=== PATIENT | female | born 1960 | race Two or more races ===

== ENCOUNTER 2022-04-18 19:37 | Emergency (ER) | payer MEDICAID ==
[2022-04-19 01:06] VITALS: BP 141/59
== END 2022-04-19 01:10 | disposition home or self-care (01) ==
LOC: ER 19:37
DX: M77.31 Calcaneal spur, right foot (principal); M54.9 Dorsalgia, unspecified; I10 Essential (primary) hypertension; E03.9 Hypothyroidism, unspecified; J45.909 Unspecified asthma, uncomplicated
CPT/HCPCS: 73630

== ENCOUNTER 2022-10-13 16:11 | Emergency (ER) | payer MEDICAID ==
[~2022-10-13] VITALS: Ht 160 cm; Wt 76.0 kg
[2022-10-13 16:48] VITALS: BP 147/84
[2022-10-13] MEDS ORDERED: KETOROLAC TROMETH 60MG/2ML VIAL IM ONE (17:30)
== END 2022-10-13 17:37 | disposition home or self-care (01) ==
LOC: ER 16:11
DX: M54.40 Lumbago with sciatica, unspecified side (principal); J45.909 Unspecified asthma, uncomplicated; I10 Essential (primary) hypertension; Z98.890 Other specified postprocedural states
CPT/HCPCS: 96372; 99283; J1885

== ENCOUNTER 2023-08-21 09:13 | Emergency (ER) | payer MEDICARE, MEDICAID ==
[~2023-08-21] VITALS: Ht 162.6 cm; Wt 86.0 kg
[2023-08-21 10:31] LABS: Hematocrit 39.1 % (36.0-46.0); Hemoglobin 12.9 g/dL (12.2-16.2); Mean Corpuscular Hemoglobin 28.9 pg (28.0-32.0); Mean Corpuscular Hgb Conc. 32.9 g/dL (32.0-36.0); Mean Corpuscular Volume 87.9 fL (80.0-100.0); Red Blood Cells 4.44 10^6/uL (4.0-5.20); Red Cell Distribution Width 15.4 % (11.8-14.3); White Blood Cell 5.2 10^3/uL (4.4-10.8)
[2023-08-21 10:35] LABS: Band Neutrophils % (manual) 0; Basophils % (manual) 0 (0.0-2.0); Blast Cells 0; Metamyelocytes % 0; Myelocytes % 0; Promyelocytes % 0; Reactive Lymphocytes 0
[2023-08-21 10:38] LABS: Alanine Aminotransferase 70 U/L (7-40); Albumin 4.8 g/dL (3.2-4.8); Alkaline Phosphatase 95 U/L (46-116); Anion Gap 8 (5-15); Aspartate Aminotransferase 54 U/L (13-40); BUN/Creatinine Ratio 19.8 (10.0-20.0); Bilirubin, Total 0.4 mg/dL (0.2-1.0); Blood Urea Nitrogen 18 mg/dL (9-23); Calcium 9.6 mg/dL (8.5-10.1); Carbon Dioxide 29 mmol/L (20-30); Chloride 104 mmol/L (98-107); Glucose 110 mg/dL (74-106); Sodium 141 mmol/L (136-145); Total Protein 7.5 g/dL (5.7-8.2)
[2023-08-21 13:01] LABS: Eosinophils % (manual) 2 (0-7); Lymphocytes % (manual) 24 (10.0-50.0); Monocytes % (manual) 12 (0-12); Platelet Estimate Adequate
[2023-08-21 14:56] VITALS: PULSE 78
[2023-08-21 14:58] VITALS: BP 107/60; PULSE 81; RESP 15; TEMP 97.7; O2SAT 99
== END 2023-08-21 15:00 | disposition home or self-care (01) ==
LOC: ER 09:13
DX: I16.0 Hypertensive urgency (principal); E11.9 Type 2 diabetes mellitus without complications; E78.5 Hyperlipidemia, unspecified; E03.9 Hypothyroidism, unspecified; J45.909 Unspecified asthma, uncomplicated
CPT/HCPCS: 36415; 70450; 80053; 84484; 85007; 85027; 93005

== ENCOUNTER 2023-09-03 15:36 | Emergency (ER) | payer OTHER, MEDICAID ==
[~2023-09-03] VITALS: Ht 149.9 cm; Wt 87.7 kg
[2023-09-03 15:46] VITALS: BP 146/62; PULSE 95; RESP 18; O2SAT 96
[2023-09-03] MEDS ORDERED: TETRACAINE HCL 0.5% OPTH(EYE) SOLN 4ML RIGHTEYE ONE (17:00)
[2023-09-03] MEDS ORDERED: FLUORESCEIN SOD OPTH TEST STRIP OP ONE (17:00)
[2023-09-03] MEDS ORDERED: CIPR0.3S67 OP (17:15)
== END 2023-09-03 17:35 | disposition home or self-care (01) ==
LOC: ER 15:36
DX: S05.01XA Injury of conjunctiva and corneal abrasion without foreign body, right eye, initial encounter (principal); J45.909 Unspecified asthma, uncomplicated; I10 Essential (primary) hypertension; E11.9 Type 2 diabetes mellitus without complications; E78.5 Hyperlipidemia, unspecified; E03.9 Hypothyroidism, unspecified; Z79.2 Long term (current) use of antibiotics; X58.XXXA Exposure to other specified factors, initial encounter; Y93.89 Activity, other specified; Y92.89 Other specified places as the place of occurrence of the external cause; Y99.8 Other external cause status

== ENCOUNTER 2024-02-25 10:34 | Inpatient (IN) | payer OTHER, MEDICAID ==
[~2024-02-25] VITALS: Ht 160 cm; Wt 91.2 kg
[~2024-02-25 10:34] MED LIST: CIPR0.3S67 OP
[2024-02-25 12:01] VITALS: PULSE 80; RESP 16; O2SAT 95
[2024-02-25 12:04] LABS: Basophils # (auto) 0.1 10 ^3/uL (0-0.2); Basophils % (auto) 0.9 % (0.0-2.0); Eosinophils # (auto) 0.4 10 ^3/uL (0-0.8); Eosinophils % (auto) 5.2 % (0.0-7.0); Hemoglobin 11.9 g/dL (12.2-16.2); Lymphocytes # (auto) 1.9 10 ^3/uL (0.4-5.4); Mean Corpuscular Hemoglobin 29.8 pg (28.0-32.0); Mean Corpuscular Hgb Conc. 33.1 g/dL (32.0-36.0); Mean Corpuscular Volume 90.1 fL (80.0-100.0); Monocytes # (auto) 0.6 10 ^3/uL (0-1.3); Monocytes % (auto) 9.3 % (0.0-12.0); Neutrophils # (auto) 3.9 10 ^3/uL (1.6-8.6); Neutrophils % (auto) 56.6 % (37.0-80.0); Nucleated Red Blood Cells % 0.1 %; Red Cell Distribution Width 14.2 % (11.8-14.3); White Blood Cell 6.8 10^3/uL (4.4-10.8)
[2024-02-25 12:08] LABS: Urine Bacteria FEW /hpf (None Seen); Urine Blood TRACE /uL (Negative); Urine Clarity Turbid (Clear); Urine Color Light-Yellow (Yellow); Urine Hyaline Cast FEW /lpf (0 - 2); Urine Protein, UAD Negative (Negative); Urine Specific Gravity 1.016 (1.001-1.035); Urine Urobilinogen Normal (Negative); Urine WBC 1 /hpf (0 - 5)
[2024-02-25 12:22] LABS: Alanine Aminotransferase 32 U/L (7-40); Albumin 4.5 g/dL (3.2-4.8); Alkaline Phosphatase 99 U/L (46-116); Anion Gap 8 (5-15); Aspartate Aminotransferase 26 U/L (13-40); BUN/Creatinine Ratio 24.7 (10.0-20.0); Bilirubin, Total 0.4 mg/dL (0.2-1.0); Blood Urea Nitrogen 18 mg/dL (9-23); Calcium 9.7 mg/dL (8.7-10.4); Carbon Dioxide 28 mmol/L (20-30); Chloride 105 mmol/L (98-107); Glucose 112 mg/dL (74-106); Potassium 3.8 mmol/L (3.5-5.1); Sodium 141 mmol/L (136-145); Total Protein 7.1 g/dL (5.7-8.2)
[2024-02-25] MEDS: MECLIZINE HCL 25 MG TAB PO ONE (14:00)
[2024-02-25] MEDS: HYDROcodone-ACET 5/325MG TAB PO ONE (14:56)
[2024-02-25] MEDS: DexAMETHasone SOD PHOS 10MG/1ML VIAL INJ IV ONE (15:08)
[2024-02-25] MEDS: SODIUM CHLORIDE 0.9% 1,000 ML IV ONE (16:58)
[2024-02-25] MEDS: diazePAM 2 MG TAB PO ONE (16:58)
[2024-02-25] MEDS: cefTRIAXone 1GM/50ML D5W 50 ML IV ONE (17:03)
[2024-02-25 20:00] VITALS: PULSE 81; RESP 17; O2SAT 96
[2024-02-25] MEDS ORDERED: DEXTROSE (50%) 50ML SYRG IV PRN (22:30)
[2024-02-25] MEDS ORDERED: DOCUSATE SOD 100 MG CAP PO PRN (22:30)
[2024-02-25] MEDS ORDERED: ONDANSETRON HCL 4 MG/2 ML VIAL IV PRN (22:30)
[2024-02-25] MEDS ORDERED: NITROGLYCERIN 0.4 MG SL TAB SL PRN (23:15)
[2024-02-25] MEDS ORDERED: MORPHINE SULFATE INJ 2 MG/ml SYRG IV PRN (23:15)
[2024-02-26] VITALS (8 sets, daily range): BP systolic 120–148; BP diastolic 60–81; PULSE 69–82; RESP 16–20; TEMP 97.7–98.6; O2SAT 95–99
[2024-02-26] MEDS: LEVOTHYROXINE SODIUM 88 MCG TAB PO SCH (05:57)
[2024-02-26] MEDS: SODIUM CHLOR 0.9% PF (SALINE LOCK) 10ML VIAL/SYR IV SCH (06:05)
[2024-02-26] MEDS: ACCU-CHEK COMFORT CURVE STRIP VI SCH (06:09)
[2024-02-26] MEDS: InsuLIN REG 1unit/0.01ml Soln (100units/ml) SC SCH (06:09)
[2024-02-26 07:01] LABS: Alanine Aminotransferase 34 U/L (7-40); Albumin 4.6 g/dL (3.2-4.8); Alkaline Phosphatase 96 U/L (46-116); Anion Gap 6 (5-15); Aspartate Aminotransferase 28 U/L (13-40); BUN/Creatinine Ratio 16.7 (10.0-20.0); Bilirubin, Total 0.3 mg/dL (0.2-1.0); Blood Urea Nitrogen 12 mg/dL (9-23); Calcium 9.7 mg/dL (8.5-10.1); Carbon Dioxide 25 mmol/L (20-30); Chloride 108 mmol/L (98-107); Glucose 130 mg/dL (74-106); Potassium 4.1 mmol/L (3.5-5.1); Sodium 139 mmol/L (136-145); Total Protein 7.5 g/dL (5.7-8.2)
[2024-02-26 07:13] LABS: Basophils # (auto) 0 10 ^3/uL (0-0.2); Basophils % (auto) 0.4 % (0.0-2.0); Eosinophils # (auto) 0 10 ^3/uL (0-0.8); Eosinophils % (auto) 0.1 % (0.0-7.0); Hematocrit 36.9 % (36.0-46.0); Hemoglobin 12.3 g/dL (12.2-16.2); Lymphocytes # (auto) 1.3 10 ^3/uL (0.4-5.4); Lymphocytes % (auto) 12.3 % (10.0-50.0); Mean Corpuscular Hemoglobin 29.8 pg (28.0-32.0); Mean Corpuscular Hgb Conc. 33.4 g/dL (32.0-36.0); Mean Corpuscular Volume 89.1 fL (80.0-100.0); Monocytes # (auto) 0.4 10 ^3/uL (0-1.3); Monocytes % (auto) 3.8 % (0.0-12.0); Neutrophils # (auto) 9.1 10 ^3/uL (1.6-8.6); Neutrophils % (auto) 83.4 % (37.0-80.0); Nucleated Red Blood Cells % 0.1 %; Red Blood Cells 4.14 10^6/uL (4.0-5.20); Red Cell Distribution Width 14.1 % (11.8-14.3)
[2024-02-26] MEDS: MECLIZINE HCL 25 MG TAB PO PRN (11:43)
[2024-02-26] MEDS: HYDROcodone-ACET 5/325MG TAB PO PRN (11:44)
[2024-02-26] MEDS: cefTRIAXone 1GM/50ML D5W 50 ML IV SCH (17:00)
[2024-02-26] MEDS ORDERED: IBUP-1456 PO (19:23)
[2024-02-26] MEDS ORDERED: HYDR12.59 PO (19:23)
[2024-02-26] MEDS ORDERED: LOSA-535 PO (19:23)
[2024-02-26] MEDS ORDERED: PAR20T GT (19:23)
[2024-02-26] MEDS ORDERED: METF-370 PO (19:23)
[2024-02-26] MEDS ORDERED: LEVO88TA4 PO (19:23)
[2024-02-26] MEDS ORDERED: PERCOT PO (19:23)
[2024-02-26] MEDS ORDERED: ATOR-507 PO (19:23)
[2024-02-26] MEDS ORDERED: LORazepam 2MG/ML-1ML VIAL IV PRN (20:45)
[2024-02-26] MEDS: ATORVASTATIN 20 MG TAB PO SCH (21:06)
[2024-02-27] VITALS (7 sets, daily range): BP systolic 127–152; BP diastolic 59–82; PULSE 66–74; RESP 16–19; TEMP 96.5–98; O2SAT 94–98
[2024-02-27 03:24] LABS: Amphetamine Screen, Urine Neg (NEGATIVE); Benzodiazephine Screen, Urine Neg (NEGATIVE)
[2024-02-27 03:25] LABS: Barbiturate Scree,Urine Neg (NEGATIVE); Cannabinoid Screen, Urine Neg (NEGATIVE); Cocaine Screen, Urine Neg (NEGATIVE); Opiate Scree,Urine Neg (NEGATIVE); Phencyclidine Screen, Urine Neg (NEGATIVE)
[2024-02-27] MEDS: PARoxetine 20 MG TAB PO SCH (10:42)
[2024-02-27] MEDS: ACETAMINOPHEN 325 MG TAB PO PRN (18:09)
[2024-02-28] VITALS (9 sets, daily range): BP systolic 0–164; BP diastolic 52–72; PULSE 20–78; RESP 17–18; TEMP 97.3–98.7; O2SAT 93–100
[2024-02-29] VITALS (7 sets, daily range): BP systolic 126–150; BP diastolic 61–89; PULSE 65–77; RESP 17–18; TEMP 97.8–98.5; O2SAT 95–97
[2024-02-29] MEDS: PARoxetine 20 MG TAB PO SCH (09:30)
[2024-02-29] MEDS: traZODone HCL 50 MG TAB PO SCH (22:02)
[2024-03-01 01:00] VITALS: BP 136/68; PULSE 82; RESP 18; TEMP 97.9; O2SAT 92
[2024-03-01 05:00] VITALS: BP 123/74; PULSE 74; RESP 21; TEMP 97.9; O2SAT 92
[2024-03-01 07:45] VITALS: PULSE 72
[2024-03-01 09:00] VITALS: BP 121/73; PULSE 62; RESP 14; TEMP 98.3; O2SAT 98
[2024-03-01] MEDS ORDERED: PAR20T PO (11:17)
[2024-03-01] MEDS ORDERED: TRAZ-228 PO (11:17)
[2024-03-01] MEDS ORDERED: MECL25CH85 PO (11:17)
[2024-03-01 12:26] VITALS: BP 121/73; PULSE 62; RESP 14; TEMP 98.3; O2SAT 98
== END 2024-03-01 13:00 | disposition home or self-care (01) | DRG 312 ==
LOC: ER 10:34 → TELE 23:02 → TELE-WESTW 23:02
PROVIDERS: ADMIT Nurse Practitioner Family; ATTEND Family Medicine
DX: R55 Syncope and collapse (principal); N39.0 Urinary tract infection, site not specified; F32.9 Major depressive disorder, single episode, unspecified; G89.29 Other chronic pain; S33.5XXA Sprain of ligaments of lumbar spine, initial encounter; E11.9 Type 2 diabetes mellitus without complications; E78.00 Pure hypercholesterolemia, unspecified; F41.9 Anxiety disorder, unspecified; E03.9 Hypothyroidism, unspecified; I10 Essential (primary) hypertension; F17.200 Nicotine dependence, unspecified, uncomplicated; H53.2 Diplopia; E66.9 Obesity, unspecified; Z79.4 Long term (current) use of insulin; Z80.0 Family history of malignant neoplasm of digestive organs; Z68.35 Body mass index [BMI] 35.0-35.9, adult; Z79.84 Long term (current) use of oral hypoglycemic drugs; Z81.8 Family history of other mental and behavioral disorders; Z82.49 Family history of ischemic heart disease and other diseases of the circulatory system; Z83.3 Family history of diabetes mellitus; W18.39XA Other fall on same level, initial encounter; Y93.89 Activity, other specified; Y92.89 Other specified places as the place of occurrence of the external cause; Y99.8 Other external cause status
CPT/HCPCS: 36415; 70450; 70551; 74176; 80053; 80307; 81001; 82962; 84443; 84484; 85025; 93005; 93306; 93886; 95819; 96361; 96365; 96375; G0378; J1100; J1815

== ENCOUNTER 2024-07-12 11:10 | Emergency (ER) | payer OTHER, MEDICAID ==
[~2024-07-12] VITALS: Ht 167.6 cm; Wt 85.7 kg
[~2024-07-12 11:10] MED LIST changes: +ATOR-507 PO; +HYDR12.59 PO; +IBUP-1456 PO; +LEVO88TA4 PO; +LOSA-535 PO; +MECL25CH85 PO; +METF-370 PO; +PAR20T GT; +PAR20T PO; +PERCOT PO; +TRAZ-228 PO
[2024-07-12 12:12] VITALS: BP 138/80; PULSE 75; RESP 18; TEMP 97.6; O2SAT 97
[2024-07-12] MEDS ORDERED: IBUP-1454 PO (12:46)
[2024-07-12] MEDS: TRIAMCINOLONE 40MG/ML 1ML VIAL IX ONE (12:46)
[2024-07-12] MEDS: LIDOCAINE 1% HCL (LOCAL ANESTH.) INJ 20ML MDV IJ ONE (12:46)
== END 2024-07-12 12:59 | disposition home or self-care (01) ==
LOC: ER 11:10
DX: M65.4 Radial styloid tenosynovitis [de Quervain] (principal); I10 Essential (primary) hypertension; E11.9 Type 2 diabetes mellitus without complications; E78.00 Pure hypercholesterolemia, unspecified; E03.9 Hypothyroidism, unspecified; J45.909 Unspecified asthma, uncomplicated; Z79.84 Long term (current) use of oral hypoglycemic drugs; Z79.899 Other long term (current) drug therapy; Z98.890 Other specified postprocedural states
CPT/HCPCS: 20550; 73110; 99284; J2003; J3301

== ENCOUNTER 2025-01-16 14:16 | Inpatient (IN) | payer OTHER, MEDICAID ==
[~2025-01-16] VITALS: Ht 162.6 cm; Wt 86.5 kg
[~2025-01-16 14:16] MED LIST changes: +ALEN35TA18 PO; +HYDR25TA5 PO; +IBUP-1454 PO; +QUET1TAB11 PO
--- NOTE | 2025-01-16 14:31 | ECG ---
[facility] Test Date: 2025-01-16 Test Time: 14:22:40 Pat Name: ARIELA COLEY Department: ER Room: 0236 Gender: F Pharmacy Benefit Manager: GP : [id number] Requested By: ALONZO ZAMARRIPA Order Number: [id number] Reading MD: Thierry Perez Measurements Intervals [place] Rate: 87 P: 55 DC: 150 QRS: 49 QRSD: 100 T: 55 QT: 360 QTc: 433 Interpretive Statements Sinus rhythm Electronically Signed On 01-18-2025 21:01:46 PDT by Thierry Perez Please click the below link to view image of tracing.
--- NOTE | 2025-01-16 14:33 | ED.PDOC ---
History of Present Illness HPI Comments 64-year-old female who comes in with chief complaint of some shortness of breaths as well as some chest pain. The patient states that the symptoms started approximately two weeks ago and then she developed some substernal chest pain with the shortness for breath. There is no radiation of the pain. The patient has had a nonproductive cough but denies any fever. The patient states that the pain is a 6/10 at this time. There has been no trauma. The patient denies any diarrhea Time Seen by MD: 14:22 Primary Care Provider: CARMELLA Reviewed Notes: Nurses Notes, Medications, Allergies (No allergies to medications) Allergies: Coded Allergies: NO KNOWN ALLERGIES (Unverified , 04/18/22) Home Meds Active Scripts Ibuprofen (Ibuprofen) 600 Mg Tab, 1 TAB PO TID for 10 Days, #30 TAB 0 Refills Prov:RD REYNOLDS STUMM[employer] SELECTOR 07/12/24 Meclizine HCl (Antivert) 25 Mg Chw, 25 MG PO TID PRN, #30 TAB.CHEW Prov:BEREKET LUCAS MD 03/01/24 Trazodone Hcl (Trazodone Hcl) 100 Mg Tab, 1 TAB PO QPM, #30 TAB 1 Refill Prov:BEREKET LUCAS MD 03/01/24 Paroxetine (PAXIL TABLET) 20 Mg Tb, 1 TAB PO DAILY, #90 TAB 3 Refills Prov:BEREKET LUCAS MD 03/01/24 Ciprofloxacin HCl (Ophth) (Ciprofloxacin Hydrochlori) 0.3 % Gerda, 2 DROP OP QID, #5 ML Prov:KIMBERLY MCKEON 09/03/23 Reported Medications Oxycodone W/ Acetaminophen (Percocet 5/325MG) 1 Tab Tb, 2 TAB PO DAILY, #120 TAB 02/26/24 Paroxetine (PAXIL TABLET) 20 Mg Tb, 10 MG GT DAILY, TAB 02/26/24 Levothyroxine Sodium (Levothyroxine Sodium) 88 Mcg Tab, 88 MCG PO QAM for 30 Days, MCG 02/26/24 Metformin Hydrochloride (Metformin Hcl) 500 Mg Tab, 500 MG PO DAILY for 30 Days, MG 02/26/24 Losartan Potassium (Losartan Potassium) 100 Mg Tab, 100 MG PO DAILY for 30 Days, MG 02/26/24 Atorvastatin Calcium (Lipitor) 40 Mg Tab, 1 TAB PO QPM, #90 TAB 3 Refills 02/26/24 Hydrochlorothiazide (Hydrochlorothiazide) 12.5 Mg Cap, 12.5 MG PO DAILY for 30 Days, MG 02/26/24 Ibuprofen (Ibuprofen) 800 Mg Tab, 800 MG PO, MG 02/26/24 Information Source: Patient Mode of Arrival: Ambulatory Severity: Moderate Timing: Weeks Duration: Since onset Prehospital treatment: None Location: Substernal chest pain Associated signs and symptoms Associated cough with shortness of breath Past Medical History PAST MEDICAL HISTORY: Asthma, DM, High Lipids, HTN, Thyroid Surgical History: Hernia Repair CRISIS SPECIALIST History: Denies all CRISIS SPECIALIST Hx Family History Family History: Family hx of DM, Family hx of HTN Social History Smoker: Non-Smoker Alcohol: Denies ETOH Use Drugs: Denies Drug Use Lives In: Home Constitutional: denies: chills, diaphoresis, fatigue, fever, malaise, sweats, weakness, others EENTM: denies: blurred vision, double vision, ear bleeding, ear discharge, ear drainage, ear pain, ear ringing, eye pain, eye redness, hearing loss, mouth pain, mouth swelling, nasal discharge, nose bleeding, nose congestion, nose pain, photophobia, tearing, throat pain, throat swelling, voice changes, others Respiratory: reports: cough, shortness of breath; denies: hemoptysis, orthopnea, SOB at rest, SOB with excertion, stridor, wheezing, others Cardiovascular: reports: chest pain; denies: dizzy spells, diaphoresis, Dyspnea on exertion, edema, irregular heart beat, left arm pain, lightheadedness, palpitations, PND, syncope, others Gastrointestinal: denies: abdomen distended, abdominal pain, blood streaked bowels, constipated, diarrhea, dysphagia, difficulty swallowing, hematemesis, melena, nausea, poor appetite, poor fluid intake, rectal bleeding, rectal pain, vomiting, others Genitourinary: denies: abnormal vagina bleeding, burning, dyspareunia, dysuria, flank pain, frequency, hematuria, incontinence, pain, , vagina discharge, urgency, others Neurological: denies: dizziness, fainting, headache, left sided numbness, left sided weakness, numbness, paresthesia, pre-existing deficit, right sided numbness, right sided weakness, seizure, speech problems, tingling, tremors, weakness, others Musculoskeletal: denies: back pain, gout, joint pain, joint swelling, muscle pain, muscle stiffness, neck pain, others Integumetry: denies: bruises, change in color, change in hair/nails, dryness, laceration, lesions, lumps, rash, wounds, others Allergic/Immunocompromised: denies: Difficulty Healing, Frequent Infections, Hives, Itching, others Hematologic/Lymphatic: denies: anemia, blood clots, easy bleeding, easy bruising, swollen glands, others Endocrine: denies: excessive hunger, excessive sweating, excessive thirst, excessive urination, flushing, intolerance to cold, intolerance to heat, unexplained weight gain, unexplained weight loss, others Psychiatric: denies: anxiety, bipolar disorder, depression, hopeless, panic disorder, schizophrenia, sleepless, suicidal, others Physical Exam General Appearance: Moderate Distress, Obese HEENT: Normal ENT Inspection, Pharynx Normal, TMs Normal Neck: Full Range of Motion, Non-Tender, Normal, Normal Inspection Respiratory: Chest Non-Tender, Lungs Clear, No Accessory Muscle Use, No Respiratory Distress, Normal Breath Sounds Cardiovascular: No Edema, No JVD, No Murmur, No Gallop, Normal Peripheral Pulses, Regular Rate/Rhythm Breast Exam: Deferred Gastrointestinal: No Organomegaly, Non Tender, No Pulsatile Mass, Normal Bowel Sounds, Soft Genitalia: Deferred Pelvic: Deferred Rectal: Deferred Extremities: No calf tenderness, Normal capillary refill, Normal inspection, Normal range of motion, Non-tender, No pedal edema Musculoskeletal : Apperance: Normal Neurologic: Alert, director operating room II-XII nml as Tested, No Motor Deficits, Normal Affect, Normal Mood, No Sensory Deficits Cerebellar Function: Normal Reflexes: Normal Skin: Dry, Normal Color, Warm Lymphatic: No Adenopathy Was a procedure done? Was a procedure done?: No EKG EKG : Pulse Rate (adult): 87 Jackson: Normal Cardiac Rhythm: NSR Block: None ST: Nonsp Differential Dx Considerations may include: ACS, UT, generalized weakness X-Ray, Labs, Meds, VS Vital Signs Date Time Temp Pulse Resp B/P (MAP) Pulse Ox O2 Delivery O2 Flow Rate FiO2 01/16/25 14:38 87 01/16/25 14:22 87 01/16/25 14:21 97.2 97 22 124/75 (91) 97 97.2 Lab Test 01/16/25 15:42 01/16/25 14:31 Range/Units Troponin I High Sensitivity < 3 L < 3 L </=34 ng/L White Blood Count 8.1 4.4-10.8 10^3/uL Red Blood Count 4.12 4.0-5.20 10^6/uL Hemoglobin 12.6 12.2-16.2 g/dL Hematocrit 37.4 36.0-46.0 % Mean Corpuscular Volume 90.8 80.0-100.0 fL Mean Corpuscular Hemoglobin 30.7 28.0-32.0 pg Mean Corpuscular Hemoglobin Concent 33.8 32.0-36.0 g/dL Red Cell Distribution Width 14.1 11.8-14.3 % Platelet Count 233 140-450 10^3/uL Mean Platelet Volume 8.2 6.9-10.8 fL Neutrophils (%) (Auto) 57.4 37.0-80.0 % Lymphocytes (%) (Auto) 27.6 10.0-50.0 % Monocytes (%) (Auto) 8.8 0.0-12.0 % Eosinophils (%) (Auto) 5.3 0.0-7.0 % Basophils (%) (Auto) 0.9 0.0-2.0 % Neutrophils # (Auto) 4.7 1.6-8.6 10 ^3/uL Lymphocytes # (Auto) 2.2 0.4-5.4 10 ^3/uL Monocytes # (Auto) 0.7 0-1.3 10 ^3/uL Eosinophils # (Auto) 0.4 0-0.8 10 ^3/uL Basophils # (Auto) 0.1 0-0.2 10 ^3/uL Nucleated Red Blood Cells 0.0 % D-Dimer, Quantitative 0.45 0.0-0.49 mg/L FEU Sodium Level 141 136-145 mmol/L Potassium Level 3.3 L 3.5-5.1 mmol/L Chloride Level 103 98-107 mmol/L Carbon Dioxide Level 29 20-31 mmol/L Anion Gap 9 5-15 Blood Urea Nitrogen 19 9-23 mg/dL Creatinine 0.79 0.550-1.02 mg/dL Glomerular Filtration Rate Calc 82 >90 mL/min BUN/Creatinine Ratio 24.1 H 10.0-20.0 Serum Glucose 140 H 74-106 mg/dL Calcium Level 10.2 8.7-10.4 mg/dL B-Type Natriuretic Peptide 9.30 0-100 pg/mL IV Hep-Lock was established. The patient's CBC is within normal limits The chemistry panel is within normal limits except for hypokalemia at 3.3 The patient was being admitted to the hospitalist The chest x-ray shows: No sign of any abnormalities The patient was being admitted at this time A cardiology consult will be obtained. Images Reviewed?: Images reviewed and evaluated by me Time of 1ST Reevaluation: 14:38 Reevaluation 1ST: Unchanged Patient Education/Counseling: Diagnosis, Treatment, Prognosis Family Education/Counseling: No Family Present Departure 1 Departure Time of Disposition: 17:36 Impression: Primary Impression: Acute myocardial ischemia Disposition: 09 ADMITTED INPATIENT Admit to: [facility] [place] Condition: Fair Critical Care Note Critical Care Time?: Yes (45 min-critical care time only) Stability Stability form required: Yes Unstable for transfer: Telemetry monitoring (Telemetry monitoring required), ED Physician Assesment (Clinical assesment) Heart Score Heart Score: Heart Score Response (Comments) Value History Moderate Suspicious 1 EKG Repolarization Disturb 1 Age >65 2 Risk Factors 1 or 2 risk factors 1 Troponin Normal limit 0 Total 5 ALONZO ZAMARRIPA MD Jan 16, 2025 14:33
[2025-01-16 14:45] LABS: Basophils # (auto) 0.1 10 ^3/uL (0-0.2); Basophils % (auto) 0.9 % (0.0-2.0); Eosinophils # (auto) 0.4 10 ^3/uL (0-0.8); Eosinophils % (auto) 5.3 % (0.0-7.0); Hematocrit 37.4 % (36.0-46.0); Hemoglobin 12.6 g/dL (12.2-16.2); Lymphocytes # (auto) 2.2 10 ^3/uL (0.4-5.4); Lymphocytes % (auto) 27.6 % (10.0-50.0); Mean Corpuscular Hemoglobin 30.7 pg (28.0-32.0); Mean Corpuscular Hgb Conc. 33.8 g/dL (32.0-36.0); Mean Corpuscular Volume 90.8 fL (80.0-100.0); Monocytes # (auto) 0.7 10 ^3/uL (0-1.3); Monocytes % (auto) 8.8 % (0.0-12.0); Neutrophils # (auto) 4.7 10 ^3/uL (1.6-8.6); Neutrophils % (auto) 57.4 % (37.0-80.0); Platelet Count (auto) 233 10^3/uL (140-450); Red Blood Cells 4.12 10^6/uL (4.0-5.20); Red Cell Distribution Width 14.1 % (11.8-14.3); White Blood Cell 8.1 10^3/uL (4.4-10.8)
[2025-01-16 14:56] LABS: Chloride 103 mmol/L (98-107); Sodium 141 mmol/L (136-145)
[2025-01-16 14:57] LABS: Calcium 10.2 mg/dL (8.7-10.4)
[2025-01-16 14:59] LABS: Potassium 3.3 mmol/L (3.5-5.1)
[2025-01-16 15:02] LABS: BUN/Creatinine Ratio 24.1 (10.0-20.0); Blood Urea Nitrogen 19 mg/dL (9-23)
[2025-01-16 15:03] LABS: Glucose 140 mg/dL (74-106)
[2025-01-16 15:23] LABS: Anion Gap 9 (5-15); Carbon Dioxide 29 mmol/L (20-31)
--- NOTE | 2025-01-16 15:49 | DVH ---
XY CHEST TWO VIEWS ROUTINE CLINICAL HISTORY: CP COMPARISON: None TECHNIQUE: Frontal and lateral view of the chest was obtained FINDINGS: Lines and Tubes: None Lungs: No focal consolidation. Pleura: No effusion. No pneumothorax. Cardiomediastinal contours: Unremarkable Bones: No acute osseous abnormality. IMPRESSION: No acute cardiopulmonary disease.
[2025-01-16 21:00] VITALS: RESP 18; O2SAT 96
--- NOTE | 2025-01-16 22:09 | DVHHPRES ---
History of Present Illness Resident Creating Document: STEVE IGNACIO RESIDENT History of Present Illness Patient is a 64-year-old female with past medical history of hypertension, dyslipidemia, hypothyroidism, type 2 diabetes, asthma, who came in due to neck and chest pain. According to the patient, for the past 2 weeks she has been experiencing a neck and chest pain which she describes as tight in nature, 6/10 in intensity. Patient notes that talking makes her pain worse, staying quiet relieves the pain. Patient also notes dysphagia to both solids and liquids, denies any regurgitation or foul smelling breath. Patient also notes feeling the sensation like food is stuck in her throat. On review of systems, patient is complaining of fatigue, cough, sore throat, hypersalivation, shortness of breath, dizziness and incontinence. Chest pain is reproducible with palpation, serial troponins are <3, <3, <3 and EKGs largely unremarkable. Past Medical History Hypertension, dyslipidemia, hypothyroidism, diabetes, asthma Past Surgical History Back surgery, hernia repair surgery Past Social History Smoking: Quit smoking 20 years ago, prior to that was smoking 5 cigarettes per day for 15 years. Alcohol: Denies Drugs: Denies Review of Systems Constitutional: Yes: Malaise; No: Fever, Chills, Sweats, Weakness, Other Eyes: No: Pain, Vision change, Conjunctivae inflammation, Eyelid inflammation, Other, Redness ENT: Throat pain; No: Ear pain, Ear discharge, Nose pain, Nose discharge, Nose congestion, Mouth pain, Mouth swelling, Throat swelling, Other Respiratory: Cough, Dry, Shortness of breath; No: SOB with excertion, Wheezing, Hemoptysis, Pleuritic Pain, Sputum, Wheezing, Other Cardiovascular: Chest Pain; No: Palpitations, Orthopnea, Paroxysmal Noc. Dyspnea, Edema, Lt Headedness, Other Gastrointestinal: No: Nausea, Vomiting, Abdominal Pain, Diarrhea, Constipation, Melena, Hematochezia, Other Genitourinary: No Dysuria, No Frequency; Incontinence; No Hematuria, No Retention, No Other Musculoskeletal: neck pain; No: other, shoulder pain, arm pain, back pain, hand pain, leg pain, foot pain Skin: No: Rash, Lesions, Jaundice, Bruising, Other Neurological: No: Weakness, Numbness, Incoordination, Change in speech, Confusion, Seizures, Other Allergies: Coded Allergies: NO KNOWN ALLERGIES (Unverified , 7/15/22) Exam Vital Signs Vital Signs Date Time Temp Pulse Resp B/P (MAP) Pulse Ox O2 Delivery O2 Flow Rate FiO2 01/16/25 14:38 87 01/16/25 14:21 97.2 22 124/75 (91) 97 97.2 General Appearance: Alert, Oriented X3, Cooperative, No acute distress HEENT: Atraumatic, PERRLA, EOMI, Mucous membr. moist/pink Respiratory: Clear to auscultation, Normal air movement Cardiovascular: Regular rate, Normal S1, Normal S2, No murmurs, Other (midsternal tenderness to palpation) Abdominal: Normal bowel sounds, Soft, No tenderness Extremities: No cyanosis, No edema, Normal pulses Skin: No breakdown, No significant lesion Neuro: Normal speech, Strength at 5/5 X4 ext Psych/Mental Status: Mental status NL, Mood NL Labs/Xrays Labs Test 01/16/25 17:57 01/16/25 14:31 Range/Units Troponin I High Sensitivity 3 L </=34 ng/L White Blood Count 8.1 4.4-10.8 10^3/uL Red Blood Count 4.12 4.0-5.20 10^6/uL Hemoglobin 12.6 12.2-16.2 g/dL Hematocrit 37.4 36.0-46.0 % Mean Corpuscular Volume 90.8 80.0-100.0 fL Mean Corpuscular Hemoglobin 30.7 28.0-32.0 pg Mean Corpuscular Hemoglobin Concent 33.8 32.0-36.0 g/dL Red Cell Distribution Width 14.1 11.8-14.3 % Platelet Count 233 140-450 10^3/uL Mean Platelet Volume 8.2 6.9-10.8 fL Neutrophils (%) (Auto) 57.4 37.0-80.0 % Lymphocytes (%) (Auto) 27.6 10.0-50.0 % Monocytes (%) (Auto) 8.8 0.0-12.0 % Eosinophils (%) (Auto) 5.3 0.0-7.0 % Basophils (%) (Auto) 0.9 0.0-2.0 % Neutrophils # (Auto) 4.7 1.6-8.6 10 ^3/uL Lymphocytes # (Auto) 2.2 0.4-5.4 10 ^3/uL Monocytes # (Auto) 0.7 0-1.3 10 ^3/uL Eosinophils # (Auto) 0.4 0-0.8 10 ^3/uL Basophils # (Auto) 0.1 0-0.2 10 ^3/uL Nucleated Red Blood Cells 0.0 % D-Dimer, Quantitative 0.45 0.0-0.49 mg/L FEU Sodium Level 141 136-145 mmol/L Potassium Level 3.3 L 3.5-5.1 mmol/L Chloride Level 103 98-107 mmol/L Carbon Dioxide Level 29 20-31 mmol/L Anion Gap 9 5-15 Blood Urea Nitrogen 19 9-23 mg/dL Creatinine 0.79 0.550-1.02 mg/dL Glomerular Filtration Rate Calc 82 >90 mL/min BUN/Creatinine Ratio 24.1 H 10.0-20.0 Serum Glucose 140 H 74-106 mg/dL Calcium Level 10.2 8.7-10.4 mg/dL B-Type Natriuretic Peptide 9.30 0-100 pg/mL Assessment/Plan Assessment/Plan Chest pain; ruled out ACS. LASHAUN 2 - serial troponin <3, <3, <3 - EKG unremarkable - CXR: No acute cardiopulmonary disease - ordered echocardiogram Influenza a and B positive - throat lozenges - oseltamivir Dysphagia to solids and liquids - soft tissue neck x-ray: There is no evidence of acute fracture or dislocation.Anterior ridging at C5-6 and 7 is noted. The visualized joint space is well maintained. The alignment is anatomical. There is no radiopaque foreign body. Hypertension Dyslipidemia - atorvastatin 40 mg - currently holding antihypertensives as blood pressure on the softer side Type 2 diabetes, Hb A1c 6.3 - mild sliding scale Hypothyroidism - thyroid ultrasound: Heterogeneous thyroid with thickened isthmus and no focal nodule - ordered serum TSH: 1.34 - resumed home medication levothyroxine 88 mcg Hypokalemia - repleted Goals of care: Full code, discussed for >16 minutes on 01/16/2025 Plan discussed with patient Plan discussed with Dr. Marcus Plan discussed with: Patient, Other (RN) Date of Service: Jan 16, 2025 Billing Provider: KEREN MARCUS MD Common Visit Codes: [id number] INP/OBS CARE (HIGH) Secondary Visit Codes: [id number] CARE PLAN 30 MINUTES STEVE IGNACIO Jan 16, 2025 22:09 KEREN MARCUS MD Jan 17, 2025 10:31
--- NOTE | 2025-01-16 22:13 | DVH ---
CLINICAL INDICATION: Neck xray lateral TECHNIQUE: 2 radiographic views of the neck for soft tissues were obtained. Comparison: None FINDINGS/IMPRESSION: There is no evidence of acute fracture or dislocation. Anterior ridging at C5-6 and 7 is noted. The visualized joint space is well maintained. The alignment is anatomical. There is no radiopaque foreign body.
[2025-01-16] MEDS ORDERED: ACETAMINOPHEN 325 MG TAB PO PRN (22:15)
[2025-01-16] MEDS: POTASSIUM EFFERVESENT TAB 25 MEQ PO ONE (22:57)
--- NOTE | 2025-01-16 23:35 | DVH ---
EXAM: US THYROID; DATE: HISTORY: HYPOTHYROIDISM COMPARISON: None TECHNIQUE: Real-time sonographic imaging was performed of the thyroid gland using grayscale and color flow imaging with a high-frequency linear transducer. FINDINGS: Right thyroid lobe measures 3.6 x 1.5 x 1.3 cm left thyroid lobe measures 2.6 x 1.4 x 0.9 cm. Isthmu s is enlarged measuring 4 mm in thickness AP The thyroid has heterogeneous echotexture multiple tiny almost imperceptible calcifications. No nodul es are appreciated. Vascular flow is normal . IMPRESSION: 1. Heterogeneous thyroid with thickened isthmus and no focal nodules [employer] TI-RADS Categories and Recommendations (2017): TR1: 0 points, Benign, No FNA TR2: 2 points, Not suspicious, No FNA TR3: 3 points, Mildly suspicious, FNA if > or = 2.5 cm, Follow if > or = 1.5 cm TR4: 4-6 points, Moderately Suspicious, FNA if > or = 1.5 cm, Follow if > or = 1.0 cm TR5: 7+ points, Highly Suspicious, FNA if > or = 1.0 cm, Follow if > or = 0.5 cm Follow-up ultrasound guidelines: TR5: yearly for 5 years, if no growth or change in TI-RADS level TR4: at 1, 2, 3 and 5 years, if no growth or change in TI-RADS level TR3: at 1, 3 and 5 years, if no growth or change in TI-RADS level If increased but below threshold for FNA, repeat in one year. Source: ACR Thyroid Imaging, Reporting and Data System (TI-RADS): White Paper of the ACR TI-RADS Committee. Jesenia glass al., J Am Chelo Radiol 2017;14:587-595.
[2025-01-17] MEDS ORDERED: DEXTROSE (50%) 50ML SYRG IV PRN (00:30)
[2025-01-17] MEDS: IOHEXOL 300 MG/ML 100ML BOTTLE IJ ONE (01:59)
[2025-01-17] MEDS: InsuLIN REG 1unit/0.01ml Soln (100units/ml) SC SCH (03:14)
[2025-01-17] MEDS: ACCU-CHEK COMFORT CURVE STRIP VI SCH (03:15)
--- NOTE | 2025-01-17 05:09 | DVH ---
EXAM: CT NECK WITH CONTRAST SOFT INDICATION: dysphagia Exam Date: 01/17/2025 03:25 AM COMPARISON: None TECHNIQUE: CT of the neck with intravenous contrast. RADIATION DOSE: CTDIvol: 52 mGy, DLP: 864 mGy*cm FINDINGS: There is no evidence of cervical mass lesion, pathologically enlarged lymph nodes or fluid collection . The fat planes of the neck appear intact. The airway and larynx are unremarkable. The parotid, submandibular and thyroid glands are unremarkable. The vascular structures of the neck appear patent. The visualized lung apices are clear. The limited visualized portions of the brain are unremarkable. The osseous structures are unremarkable. IMPRESSION: No evidence of cervical mass lesion, pathologically enlarged lymph nodes or fluid collection.
[2025-01-17 05:38] LABS: Rapid Influenza A Positive (Negative); Rapid Influenza B Positive (Negative)
[2025-01-17 05:39] LABS: COVID19 ANTIGEN SOFIA FIA NEGATIVE (NEGATIVE)
[2025-01-17 07:15] LABS: Basophils # (auto) 0.1 10 ^3/uL (0-0.2); Basophils % (auto) 0.8 % (0.0-2.0); Eosinophils # (auto) 0.5 10 ^3/uL (0-0.8); Eosinophils % (auto) 6.6 % (0.0-7.0); Hematocrit 35.3 % (36.0-46.0); Hemoglobin 12.1 g/dL (12.2-16.2); Lymphocytes # (auto) 2.6 10 ^3/uL (0.4-5.4); Lymphocytes % (auto) 35.9 % (10.0-50.0); Mean Corpuscular Hemoglobin 30.8 pg (28.0-32.0); Mean Corpuscular Hgb Conc. 34.3 g/dL (32.0-36.0); Mean Corpuscular Volume 89.7 fL (80.0-100.0); Monocytes # (auto) 0.7 10 ^3/uL (0-1.3); Monocytes % (auto) 9.8 % (0.0-12.0); Neutrophils # (auto) 3.4 10 ^3/uL (1.6-8.6); Neutrophils % (auto) 46.9 % (37.0-80.0); Platelet Count (auto) 215 10^3/uL (140-450); Red Blood Cells 3.93 10^6/uL (4.0-5.20); Red Cell Distribution Width 13.8 % (11.8-14.3); White Blood Cell 7.2 10^3/uL (4.4-10.8)
[2025-01-17 07:21] LABS: Alanine Aminotransferase 27 U/L (7-40); Albumin 4.7 g/dL (3.2-4.8); Alkaline Phosphatase 77 U/L (46-116); Anion Gap 9 (5-15); Aspartate Aminotransferase 21 U/L (13-40); BUN/Creatinine Ratio 20.8 (10.0-20.0); Bilirubin, Total 0.4 mg/dL (0.2-1.0); Blood Urea Nitrogen 16 mg/dL (9-23); Calcium 10.1 mg/dL (8.7-10.4); Carbon Dioxide 30 mmol/L (20-31); Chloride 101 mmol/L (98-107); Glucose 99 mg/dL (74-106); Potassium 3.8 mmol/L (3.5-5.1); Sodium 140 mmol/L (136-145); Total Protein 7.5 g/dL (5.7-8.2)
[2025-01-17 07:30] VITALS: PULSE 75; RESP 14; O2SAT 96
[2025-01-17] MEDS: LEVOTHYROXINE SODIUM 88 MCG TAB PO SCH (08:13)
[2025-01-17] MEDS: THROAT LOZENGES(CEPASTAT) MT ONE (09:11)
[2025-01-17] MEDS: GASTROGRAFIN 120 ML SOL ONE (09:38)
--- NOTE | 2025-01-17 11:13 | DVHPNRES ---
Progress Note Date Seen: Jan 17, 2025 Resident Creating Document: JENNIFER STROUD RESIDENT Medical Necessity Reason Pt with a Central, PICC or Fol: No Subjective Review of Systems Patient is a 64-year-old female with past medical history of hypertension, dyslipidemia, hypothyroidism, type 2 diabetes, asthma, who came in due to neck and chest pain. According to the patient, for the past 2 weeks she has been experiencing a neck and chest pain which she describes as tight in nature, 6/10 in intensity. Patient notes that talking makes her pain worse, staying quiet relieves the pain. Patient also notes dysphagia to both solids and liquids, denies any regurgitation or foul smelling breath. Patient also notes feeling the sensation like food is stuck in her throat. On review of systems, patient is complaining of fatigue, cough, sore throat, hypersalivation, shortness of breath, dizziness and incontinence. Chest pain is reproducible with palpation, serial troponins are <3, <3, <3 and EKGs largely unremarkable. Patient was seen and examined on the bedside. She is alert oriented x3. Complaint of throat pain and dysphagia to both solid and liquid and also mentioned feeling of food stuck in the throat. No other active complaint. Constitutional: Malaise, No: Fever, Chills, Sweats, Weakness, Other Eyes: No: Pain, Vision change, Conjunctivae inflammation, Eyelid inflammation, Other, Redness ENT: No: Ear pain, Ear discharge, Nose pain, Nose discharge, Nose congestion, Mouth pain, Mouth swelling, Throat pain, Throat swelling, Other Respiratory: Shortness of breath, improving Cough, No Dry,Wheezing, Hemoptysis, Pleuritic Pain, Sputum, Wheezing, Other Cardiovascular: Chest Pain, No Palpitations, Orthopnea, Paroxysmal Noc. Dyspnea, Edema, Lt Headedness, Other Gastrointestinal: No: Nausea, Vomiting, Abdominal Pain, Diarrhea, Constipation, Melena, Hematochezia, Other Musculoskeletal: Neck pain, No other shoulder pain, arm pain, back pain, hand pain, leg pain, foot pain Neurological:; No: Weakness, Numbness, Incoordination, Change in speech, Confusion, Seizures Objective vital signs Vital Sign Date Time Temp Pulse Resp B/P (MAP) Pulse Ox O2 Delivery O2 Flow Rate FiO2 01/17/25 08:00 76 01/17/25 07:30 97.5 14 109/58 (75) 96 97.5 01/17/25 07:30 Room Air* 0 21 medications Current Medications Medications Dose Ordered Sig/Marie Route Start Time Stop Time Status Last Admin Dose Admin Acetaminophen 325 mg Q4HP PRN PO 01/16/25 22:15 Levothyroxine Sodium 88 mcg QAM PO 01/17/25 07:00 01/17/25 08:13 88 MCG Atorvastatin Calcium 40 mg QPM PO 01/17/25 18:00 Diagnostic Test (Pha) 1 strip IQ4HR 01/17/25 04:00 01/17/25 08:06 1 STRIP Insulin Human Regular IQ4HR SC 01/17/25 04:00 Dextrose 50 ml UD PRN IV 01/17/25 00:30 Paroxetine HCl 20 mg DAILY PO 01/17/25 10:00 Enoxaparin Sodium 40 mg DAILY SC 01/17/25 10:00 Pantoprazole Sodium 40 mg DAILY IV 01/17/25 10:00 Oseltamivir Phosphate 75 mg Q12HR PO 01/17/25 10:00 01/22/25 09:59 Examination Physical examination: General Appearance: Alert, Oriented X3, Cooperative, No acute distress HEENT: Atraumatic, PERRLA, EOMI, Mucous membrane moist/pink Respiratory: Clear to auscultation, Normal air movement Cardiovascular: Regular rate, Normal S1, Normal S2, No murmurs, no chest wall tenderness Abdominal: Normal bowel sounds, Soft, No tenderness, No hepatospenomegaly, No masses Extremities: No clubbing, No cyanosis, No edema, Normal pulses, No tenderness/swelling Skin: No rashes, No breakdown, No significant lesion Neuro: Normal gait, Normal speech, Strength at 5/5 X4 ext, Normal tone, Sensation intact, grossly intact cranial nerves. Psych/Mental Status: Mental status NL, Mood NL laboratory and microbiology Laboratory Tests 01/17/25 06:54 Test 01/17/25 06:54 Range/Units Serum Glucose 99 74-106 mg/dL Labs and/or images reviewed: Labs reviewed by me, Image(s) reviewed by me Problem List/Assessment/Plan Problem List/Assessment/Plan Assessment and Plan: # Chest pain; ruled out ACS. LASHAUN 2 - serial troponin <3, <3, <3 - EKG unremarkable - CXR: No acute cardiopulmonary disease - Pending echocardiogram # Influenza a and B positive - throat lozenges - Oseltamivir 75 mg po bid # Dysphagia to solids and liquids - soft tissue neck x-ray: There is no evidence of acute fracture or dislocation.Anterior ridging at C5-6 and 7 is noted. The visualized joint space is well maintained. The alignment is anatomical. There is no radiopaque foreign body. - Pending barium swallow of the esophagus - GI consulted. # Hypertensive heart disease with possible chronic diastolic heart failure Dyslipidemia - Atorvastatin 40 mg at HS - currently holding antihypertensives as blood pressure on the softer side # Type 2 diabetes, Hb A1c 6.3 - mild sliding scale of insulin. # Hypothyroidism - Thyroid ultrasound: Heterogeneous thyroid with thickened isthmus and no focal nodule - Resumed home medication levothyroxine 88 mcg # Chronic depression/ anxiety - Continue paroxetine 20 mg daily # PUD prophylaxis - Protonix 40 mg p.o. daily # DVT prophylaxis - Lovenox 40 mg sc daily Goal of care discussed with the patient for more than 20 minutes full code Plan discussed with Dr. Marcus Plan discussed with: Patient, Other Date of Service: Jan 17, 2025 Billing Provider: KEREN MARCUS MD Common Visit Codes: [id number] INP/OBS CARE(HIGH) JENNIFER STROUD RESIDENT Jan 17, 2025 11:13 KEREN MARCUS MD Jan 17, 2025 15:34
[2025-01-17] MEDS: PANTOPRAZOLE 40 MG/10 ML VIAL INJ IV SCH (11:21)
[2025-01-17] MEDS: PARoxetine 20 MG TAB PO SCH (11:21)
[2025-01-17] MEDS: ENOXAPARIN SOD 40 MG/0.4 ML SYRINGE SC SCH (11:21)
[2025-01-17] MEDS: OSELTAMIVIR 75 MG CAP PO SCH (11:21)
--- NOTE | 2025-01-17 11:50 | DVH ---
XY ESOPHAGUS BARIUM SWALLOW, HISTORY: dysphagia COMPARISON: None PROCEDURE: A prepper radiograph was obtained prior to the procedure. Gastrografin administered orally, and radiographs were obtained under intermittent fluoroscopic observation. Total fluoroscopic time w as 0.5 minutes. FINDINGS: The prepper film demonstrates no abnormality. The esophagus was normal in caliber with no stricture, filling defect or wall irregularity demonstrat ed. Normal esophageal peristalsis was observed. No esophageal reflux was demonstrated during this exam. IMPRESSION: Unremarkable esophagram without structural abnormality of the esophagus.
[2025-01-17] MEDS: ATORVASTATIN 20 MG TAB PO SCH (18:09)
[2025-01-17 20:25] VITALS: PULSE 88; RESP 17; O2SAT 94
[2025-01-18] VITALS (7 sets, daily range): BP systolic 122–133; BP diastolic 49–95; PULSE 60–88; RESP 14–18; TEMP 97.6–98.6; O2SAT 93–99
[2025-01-18] MEDS: PANTOPRAZOLE 40 MG TAB PO SCH (05:10)
--- NOTE | 2025-01-18 16:34 | DVHPNRES ---
Progress Note Date Seen: Jan 18, 2025 Resident Creating Document: JENNIFER STROUD RESIDENT Medical Necessity Reason Pt with a Central, PICC or Fol: No Subjective Review of Systems Patient was seen and examined on the bedside. She is alert oriented x3. Complaint of dysphagia to both solid and liquid. Barium swallow demonstrated unremarkable esophagogram without structural abnormality of the esophagus. GI commented EGD tomorrow on 01/19/2025. Objective vital signs Vital Sign Date Time Temp Pulse Resp B/P (MAP) Pulse Ox O2 Delivery O2 Flow Rate FiO2 01/18/25 13:00 98.1 74 18 132/60 (84) 94 98.1 01/18/25 10:01 Room Air* 0 21 medications Current Medications Medications Dose Ordered Sig/Marie Route Start Time Stop Time Status Last Admin Dose Admin Acetaminophen 325 mg Q4HP PRN PO 01/16/25 22:15 Levothyroxine Sodium 88 mcg QAM PO 01/17/25 07:00 01/18/25 05:10 88 MCG Atorvastatin Calcium 40 mg QPM PO 01/17/25 18:00 01/17/25 18:09 40 MG Paroxetine HCl 20 mg DAILY PO 01/17/25 10:00 01/18/25 09:39 20 MG Enoxaparin Sodium 40 mg DAILY SC 01/17/25 10:00 01/17/25 11:21 40 MG Oseltamivir Phosphate 75 mg Q12HR PO 01/17/25 10:00 01/22/25 09:59 01/18/25 09:39 75 MG Pantoprazole Sodium 40 mg DAILY@0600 PO 01/18/25 06:00 01/18/25 05:10 40 MG Examination Physical examination: General Appearance: Alert, Oriented X3, Cooperative, No acute distress HEENT: Atraumatic, PERRLA, EOMI, Mucous membrane moist/pink Respiratory: Clear to auscultation, Normal air movement Cardiovascular: Regular rate, Normal S1, Normal S2, No murmurs, no chest wall tenderness Abdominal: Normal bowel sounds, Soft, No tenderness, No hepatospenomegaly, No masses Extremities: No clubbing, No cyanosis, No edema, Normal pulses, No tenderness/swelling Skin: No rashes, No breakdown, No significant lesion Neuro: Normal gait, Normal speech, Strength at 5/5 X4 ext, Normal tone, Sensation intact, Cranial nerves 3-12 NL, Reflexes 2+ Psych/Mental Status: Mental status NL, Mood NL laboratory and microbiology Laboratory Tests 01/17/25 06:54 Test 01/17/25 06:54 Range/Units Serum Glucose 99 74-106 mg/dL Labs and/or images reviewed: Labs reviewed by me, Image(s) reviewed by me Problem List/Assessment/Plan Problem List/Assessment/Plan Assessment and Plan: # Chest pain; ruled out ACS. LASHAUN 2 - serial troponin <3, <3, <3 - EKG unremarkable - CXR: No acute cardiopulmonary disease - Pending echocardiogram # Influenza a and B positive - throat lozenges - Oseltamivir 75 mg po bid # Dysphagia to solids and liquids - soft tissue neck x-ray: There is no evidence of acute fracture or dislocation.Anterior ridging at C5-6 and 7 is noted. The visualized joint space is well maintained. The alignment is anatomical. There is no radiopaque foreign body. - Ba-swallow esophagus demonstrated Unremarkable esophagram without structural abnormality of the esophagus. - GI recommended EGD tomorrow on 01/19/2025 # Hypertensive heart disease with possible chronic diastolic heart failure Dyslipidemia - Atorvastatin 40 mg at HS - currently holding antihypertensives as blood pressure on the softer side # Type 2 diabetes, Hb A1c 6.3 - mild sliding scale of insulin. # Hypothyroidism - Thyroid ultrasound: Heterogeneous thyroid with thickened isthmus and no focal nodule - Resumed home medication levothyroxine 88 mcg # Chronic depression/ anxiety - Continue paroxetine 20 mg daily # PUD prophylaxis - Protonix 40 mg p.o. daily # DVT prophylaxis - Hold due to the possibility of procedure tomorrow. Goal of care discussed with the patient for more than 20 minutes full code Plan discussed with Dr. Marcus Plan discussed with: Patient, Other My Orders My Orders Orders - JENNIFER STROUD RESIDENT Procedure Category Date Status Time Obtain Consent For: ORDERS 01/18/25 Transmitted 11:49 Npo (Nothing By DIET 01/19/25 Transmitted Mouth) Diet Lunch Obtain Consent For JOSE GUADALUPE 01/18/25 In Process Anesthesia 11:49 Npo After Midnight ORDERS 01/18/25 Transmitted Npo (Nothing By DIET 01/19/25 Transmitted Mouth) Diet Breakfast Date of Service: Jan 18, 2025 Billing Provider: MARCUS,IMRAN M MD Common Visit Codes: [id number] INP/OBS CARE(MOD) JENNIFER STROUD RESIDENT Jan 18, 2025 16:34 KEREN MARCUS MD Jan 19, 2025 18:55
--- NOTE | 2025-01-18 20:03 | DVHINCON2 ---
Date of service: Jan 18, [address] Rivers Reason for Consultation Dysphagia History of Present Illness This 64-year-old female presented with the complaints of dysphagia with the food getting stuck in the neck area and also had some some discomfort with the pain especially after eating both solids as well as liquids. Patient feels the food gets stuck of the neck in the throat area Had workup including soft tissue x-ray CT scan and barium swallow which were all unremarkable The ultrasound of the thyroid showed some mild thickening of the isthmus no nodule Denies weight loss we will complaints of fatigue and some cough occasionally Past Medical History Hypertension hypothyroidism dyslipidemia diabetes asthma Past Surgical History Back surgery hernia surgery Family History: Colon cancer G8 MOTHER G8 FATHER Diabetes mellitus G8 MOTHER G8 FATHER Hypertension G8 MOTHER G8 FATHER Family History Noncontributory Social History Denies smoking or drinking produced a smoker until about 20 years ago Allergies: Coded Allergies: NO KNOWN ALLERGIES (Unverified , 04/18/22) Home Meds Active Scripts Ibuprofen (Ibuprofen) 600 Mg Tab, 1 TAB PO TID for 10 Days, #30 TAB 0 Refills Prov:RD REYNOLDS [employer] 07/12/24 Meclizine HCl (Antivert) 25 Mg Chw, 25 MG PO TID PRN, #30 TAB.CHEW Prov:BEREKET LUCAS MD 03/01/24 Trazodone Hcl (Trazodone Hcl) 100 Mg Tab, 1 TAB PO QPM, #30 TAB 1 Refill Prov:BEREKET LUCAS MD 03/01/24 Paroxetine (PAXIL TABLET) 20 Mg Tb, 1 TAB PO DAILY, #90 TAB 3 Refills Prov:BEREKET LUCAS MD 03/01/24 Reported Medications Alendronate Sodium (Alendronate Sodium) 35 Mg Tab, 1 TAB PO QWEEKLY for 28 Days, #4 01/18/25 Quetiapine Fumerate (QUETIAPINE FUMARATE) 25 Mg Tab, 1-2 TAB PO HS for 30 Days, #60 01/18/25 Hctz (Hydrochlorothiazide) 25 Mg Tab, 1 TAB PO QAM for 90 Days, #90 01/18/25 Oxycodone W/ Acetaminophen (Percocet 5/325MG) 1 Tab Tb, 2 TAB PO DAILY, #120 TAB 02/26/24 Levothyroxine Sodium (Levothyroxine Sodium) 88 Mcg Tab, 88 MCG PO QAM for 30 Days, MCG 02/26/24 Metformin Hydrochloride (Metformin Hcl) 500 Mg Tab, 1 TAB PO DAILY for 90 Days, #90 02/26/24 Losartan Potassium (Losartan Potassium) 100 Mg Tab, 1 TAB PO DAILY for 90 Days, #90 02/26/24 Ibuprofen (Ibuprofen) 800 Mg Tab, 800 MG PO, MG 02/26/24 Discontinued Reported Medications Hydrochlorothiazide (Hydrochlorothiazide) 12.5 Mg Cap, 12.5 MG PO DAILY for 30 Days, MG 02/26/24 Current Medications Current Medications Medications (Trade) Dose Ordered Sig/Marie Route PRN Reason Start Time Stop Time Status Last Admin Pantoprazole Sodium (Protonix Tablet) 40 mg DAILY@0600 PO 01/18/25 06:00 01/18/25 05:10 Review of Systems Noncontributory Vital Signs Vital Signs Date Time Temp Pulse Resp B/P (MAP) Pulse Ox O2 Delivery O2 Flow Rate FiO2 01/18/25 17:00 98.6 71 18 127/77 (94) 96 98.6 01/18/25 10:01 Room Air* 0 21 Physical Exam Moderately built and nourished female in no acute distress HEENT HEENT examination showed no pallor no icterus no mass lesions Neck examination was unrevealing Lungs clear Cardiovascular unremarkable Abdomen is soft no tenderness no rigidity no guarding no masses Extremities no edema no varicosities Neurological grossly intact Labs/Diagnostic Data Labs Test 01/18/25 08:48 01/17/25 06:54 01/17/25 04:13 01/16/25 17:57 Range/Units POC Glucose 124 H 70-106 mg/dl White Blood Count 7.2 4.4-10.8 10^3/uL Red Blood Count 3.93 L 4.0-5.20 10^6/uL Hemoglobin 12.1 L 12.2-16.2 g/dL Hematocrit 35.3 L 36.0-46.0 % Mean Corpuscular Volume 89.7 80.0-100.0 fL Mean Corpuscular Hemoglobin 30.8 28.0-32.0 pg Mean Corpuscular Hemoglobin Concent 34.3 32.0-36.0 g/dL Red Cell Distribution Width 13.8 11.8-14.3 % Platelet Count 215 140-450 10^3/uL Mean Platelet Volume 8.1 6.9-10.8 fL Neutrophils (%) (Auto) 46.9 37.0-80.0 % Lymphocytes (%) (Auto) 35.9 10.0-50.0 % Monocytes (%) (Auto) 9.8 0.0-12.0 % Eosinophils (%) (Auto) 6.6 0.0-7.0 % Basophils (%) (Auto) 0.8 0.0-2.0 % Neutrophils # (Auto) 3.4 1.6-8.6 10 ^3/uL Lymphocytes # (Auto) 2.6 0.4-5.4 10 ^3/uL Monocytes # (Auto) 0.7 0-1.3 10 ^3/uL Eosinophils # (Auto) 0.5 0-0.8 10 ^3/uL Basophils # (Auto) 0.1 0-0.2 10 ^3/uL Nucleated Red Blood Cells 0.0 % Sodium Level 140 136-145 mmol/L Potassium Level 3.8 3.5-5.1 mmol/L Chloride Level 101 98-107 mmol/L Carbon Dioxide Level 30 20-31 mmol/L Anion Gap 9 5-15 Blood Urea Nitrogen 16 9-23 mg/dL Creatinine 0.77 0.550-1.02 mg/dL Glomerular Filtration Rate Calc 85 >90 mL/min BUN/Creatinine Ratio 20.8 H 10.0-20.0 Serum Glucose 99 74-106 mg/dL Calcium Level 10.1 8.7-10.4 mg/dL Total Bilirubin 0.4 0.2-1.0 mg/dL Aspartate Amino Transferase (AST) 21 13-40 U/L Alanine Aminotransferase (ALT) 27 7-40 U/L Alkaline Phosphatase 77 46-116 U/L Total Protein 7.5 5.7-8.2 g/dL Albumin 4.7 3.2-4.8 g/dL Influenza Type A Antigen Positive Negative Influenza Type B Antigen Positive Negative SARS-CoV-2 Antigen (Rapid) Negative NEGATIVE Troponin I High Sensitivity 3 L </=34 ng/L Thyroid Stimulating Hormone (TSH) 1.34 0.55-4.78 uIU/mL Test 01/16/25 14:31 Range/Units D-Dimer, Quantitative 0.45 0.0-0.49 mg/L FEU Hemoglobin A1c 6.3 H <5.7 % A1C B-Type Natriuretic Peptide 9.30 0-100 pg/mL Assessment 64 year-old female with a history of hypertension hyperlipidemia with complaints of dysphagia with food getting stuck in the upper throat area Barium swallow and other soft tissue CT etc. the neck is unremarkable Patient feels food is stuck in the throat both solids as well as liquids Denies weight loss Physical examination unremarkable Possibility of any strictures or diverticula or other pathology in the in the esophageal area can not be excluded Plan/Recommendation will recommend EGD evaluation and then further workup and treatment depending upon the findings May Also need an ENT evaluation The procedure risks benefits alternatives all explained to the patient and agreeable for the same Thank you Dr. Gandhi Plan discussed with: Patient WILDA GANDHI MD Jan 18, 2025 20:03
[2025-01-19 05:00] VITALS: BP 130/70; PULSE 77; RESP 19; TEMP 97.8; O2SAT 95
[2025-01-19 05:56] LABS: Basophils # (auto) 0 10 ^3/uL (0-0.2); Basophils % (auto) 0.7 % (0.0-2.0); Eosinophils # (auto) 0.5 10 ^3/uL (0-0.8); Eosinophils % (auto) 7.5 % (0.0-7.0); Hemoglobin 12.2 g/dL (12.2-16.2); Lymphocytes # (auto) 2.3 10 ^3/uL (0.4-5.4); Lymphocytes % (auto) 33.4 % (10.0-50.0); Mean Corpuscular Hemoglobin 30.6 pg (28.0-32.0); Mean Corpuscular Hgb Conc. 33.9 g/dL (32.0-36.0); Mean Corpuscular Volume 90.3 fL (80.0-100.0); Monocytes # (auto) 0.6 10 ^3/uL (0-1.3); Monocytes % (auto) 9.3 % (0.0-12.0); Neutrophils # (auto) 3.4 10 ^3/uL (1.6-8.6); Neutrophils % (auto) 49.1 % (37.0-80.0); Platelet Count (auto) 193 10^3/uL (140-450); Red Blood Cells 3.99 10^6/uL (4.0-5.20); Red Cell Distribution Width 14.2 % (11.8-14.3); White Blood Cell 6.9 10^3/uL (4.4-10.8)
[2025-01-19 06:12] LABS: INR 0.99 (0.9-1.15); Partial Thromboplastin Time 28.8 SEC (24.5-34.5); Prothrombin Time 10.5 sec (9.3-11.8)
[2025-01-19 06:20] LABS: Alanine Aminotransferase 26 U/L (7-40); Albumin 4.5 g/dL (3.2-4.8); Alkaline Phosphatase 76 U/L (46-116); Anion Gap 9 (5-15); Aspartate Aminotransferase 18 U/L (13-40); BUN/Creatinine Ratio 19.2 (10.0-20.0); Bilirubin, Total 0.4 mg/dL (0.2-1.0); Blood Urea Nitrogen 15 mg/dL (9-23); Calcium 9.8 mg/dL (8.7-10.4); Carbon Dioxide 26 mmol/L (20-31); Chloride 107 mmol/L (98-107); Potassium 3.9 mmol/L (3.5-5.1); Sodium 142 mmol/L (136-145); Total Protein 7.3 g/dL (5.7-8.2)
[2025-01-19 06:27] LABS: Glucose 124 mg/dL (74-106)
[2025-01-19 09:00] VITALS: BP 156/57; PULSE 74; RESP 18; TEMP 98.4; O2SAT 96
--- NOTE | 2025-01-19 10:00 | DVHPNRES ---
Progress Note Date Seen: Jan 19, 2025 Resident Creating Document: JENNIFER STROUD RESIDENT Medical Necessity Reason Pt with a Central, PICC or Fol: No Objective vital signs Vital Sign Date Time Temp Pulse Resp B/P (MAP) Pulse Ox O2 Delivery O2 Flow Rate FiO2 01/19/25 09:00 98.4 74 18 156/57 (90) 96 98.4 01/19/25 07:30 Room Air* 0 21 Total Intake and Output 01/18/25 01/18/25 01/19/25 15:00 23:00 07:00 Intake Total 1000 ml 500 ml Balance 1000 ml 500 ml medications Current Medications Medications Dose Ordered Sig/Marie Route Start Time Stop Time Status Last Admin Dose Admin Acetaminophen 325 mg Q4HP PRN PO 01/16/25 22:15 Levothyroxine Sodium 88 mcg QAM PO 01/17/25 07:00 01/19/25 06:12 88 MCG Atorvastatin Calcium 40 mg QPM PO 01/17/25 18:00 01/18/25 18:16 40 MG Paroxetine HCl 20 mg DAILY PO 01/17/25 10:00 01/18/25 09:39 20 MG Enoxaparin Sodium 40 mg DAILY SC 01/17/25 10:00 Hold 01/17/25 11:21 40 MG Oseltamivir Phosphate 75 mg Q12HR PO 01/17/25 10:00 01/22/25 09:59 01/18/25 23:27 75 MG Pantoprazole Sodium 40 mg DAILY@0600 PO 01/18/25 06:00 01/19/25 06:11 40 MG laboratory and microbiology Laboratory Tests 01/19/25 05:37 Test 01/19/25 05:37 Range/Units Serum Glucose 124 H 74-106 mg/dL Problem List/Assessment/Plan Problem List/Assessment/Plan Assessment and Plan: # Chest pain; ruled out ACS. LASHAUN 2 - serial troponin <3, <3, <3 - EKG unremarkable - CXR: No acute cardiopulmonary disease - Pending echocardiogram # Influenza a and B positive - throat lozenges - Oseltamivir 75 mg po bid # Dysphagia to solids and liquids - soft tissue neck x-ray: There is no evidence of acute fracture or dislocation.Anterior ridging at C5-6 and 7 is noted. The visualized joint space is well maintained. The alignment is anatomical. There is no radiopaque foreign body. - Ba-swallow esophagus demonstrated Unremarkable esophagram without structural abnormality of the esophagus. - GI recommended EGD tomorrow on 01/19/2025 # Hypertensive heart disease with possible chronic diastolic heart failure Dyslipidemia - Atorvastatin 40 mg at HS - currently holding antihypertensives as blood pressure on the softer side # Type 2 diabetes, Hb A1c 6.3 - mild sliding scale of insulin. # Hypothyroidism - Thyroid ultrasound: Heterogeneous thyroid with thickened isthmus and no focal nodule - Resumed home medication levothyroxine 88 mcg # Chronic depression/ anxiety - Continue paroxetine 20 mg daily # PUD prophylaxis - Protonix 40 mg p.o. daily # DVT prophylaxis - Hold due to the possibility of procedure tomorrow. Goal of care discussed with the patient for more than 20 minutes full code Plan discussed with Dr. Marcus My Orders My Orders Orders - JENNIFER STROUD Procedure Category Date Status Time Obtain Consent For: ORDERS 01/18/25 Transmitted 11:49 Npo (Nothing By DIET 01/19/25 Transmitted Mouth) Diet Lunch Obtain Consent For JOSE GUADALUPE 01/18/25 In Process Anesthesia 11:49 Npo After Midnight ORDERS 01/18/25 Transmitted JENNIFER STROUD Jan 19, 2025 10:00
[2025-01-19] MEDS ORDERED: SODIUM CHLORIDE LOCK 10 ML ONE (10:27)
[2025-01-19] MEDS ORDERED: NALOXONE HCL 0.4 MG/ML VIAL ONE (10:30)
[2025-01-19] MEDS ORDERED: FLUMAZENIL 0.1 MG/ML INJ 10ML MDV IV ONE (10:30)
[2025-01-19 11:10] VITALS: PULSE 74; RESP 14; O2SAT 98
[2025-01-19] MEDS: fentaNYL CITRATE 100 MCG/2 ML VL ONE (11:19)
[2025-01-19] MEDS: MIDAZOLAM HCL 5 MG/ML-1ML VIAL ONE (11:19)
[2025-01-19] MEDS: LIDOCAINE VISCOUS 2% 15ML UD ONE (11:19)
[2025-01-19] MEDS: diphenhdrAMINE HCL 50 MG/1 ML VL ONE (11:22)
--- NOTE | 2025-01-19 11:45 | DVHOP2 ---
Operative Report DATE OF PROCEDURE: 01/19/25 INDICATIONS FOR THE PROCEDURE: Dysphagia PROCEDURE PERFORMED: 1. Esophagogastroduodenoscopy and biopsy with cold biopsy forceps POSTOPERATIVE DIAGNOSIS: Small hiatal hernia Mild esophagitis LA classification B biopsies taken by cold biopsy forceps Mild erosive gastritis of the antrum biopsies taken by cold biopsy forceps INFORMED CONSENT: The risks and benefits and alternatives were explained to the patient and informed consent was obtained. PROCEDURE IN DETAIL: The patient was kept NPO after midnight. In the endoscopy room, she was given IV fentanyl 75 mcg and Versed, 3 mg and Benadryl 25 mg titrated slowly to get her sedated. Olympus gastroscope was passed through the oropharynx into the stomach and the duodenum, and the findings were as follows. Esophagus: Vocal cords with a normal Esophagus the proximal esophagus not show any strictures mass lesions or any extrinsic pressure effect grossly and the scope could be passed through easily 1 cm Hiatal hernia Esophagitis mild LA classification B in the distal esophagus biopsies taken with the cold biopsy forceps No Esophageal ulcer No Esophageal stricture Stomach: Fundus: Retroflexed and visualized normal Body and antrum in the antrum there were erythematous streaks with erosions suggestive of gastritis in the distal antrum biopsies taken with cold biopsy forceps for H pylori and other pathology Pylorus normal Duodenum Unremarkable Endoscopic impression Small hiatal hernia Mild esophagitis LA classification B Mild erosive gastritis No strictures or mass lesions seen in the cervical esophagus or throat area to explain the dysphagia symptoms Suggestions Await the biopsy Aggressive treatment with PPIs If dysphagia persist may need manometric studies and a good video esophagogram studies in referral center Also ENT consult Thank you for asking me to take part in the care of this pleasant patient WILDA Waggoner MD Jan 19, 2025 11:45
--- NOTE | 2025-01-19 11:58 | DVHDSRES ---
Discharge Summary Date of Admission Resident Creating Document: JENNIFER STROUD RESIDENT Jan 16, 2025 at 22:04 Date of Discharge: Jan 19, 2025 Admitting Diagnosis Chest pain ruled out ACS Influenza A and B positive Labs/Diagnostic Data: Laboratory Results Test 01/19/25 05:37 01/18/25 08:48 01/17/25 04:13 01/16/25 17:57 White Blood Count 6.9 10^3/uL (4.4-10.8) Red Blood Count 3.99 10^6/uL (4.0-5.20) Hemoglobin 12.2 g/dL (12.2-16.2) Hematocrit 36.0 % (36.0-46.0) Mean Corpuscular Volume 90.3 fL (80.0-100.0) Mean Corpuscular Hemoglobin 30.6 pg (28.0-32.0) Mean Corpuscular Hemoglobin Concent 33.9 g/dL (32.0-36.0) Red Cell Distribution Width 14.2 % (11.8-14.3) Platelet Count 193 10^3/uL (140-450) Mean Platelet Volume 8.4 fL (6.9-10.8) Neutrophils (%) (Auto) 49.1 % (37.0-80.0) Lymphocytes (%) (Auto) 33.4 % (10.0-50.0) Monocytes (%) (Auto) 9.3 % (0.0-12.0) Eosinophils (%) (Auto) 7.5 % (0.0-7.0) Basophils (%) (Auto) 0.7 % (0.0-2.0) Neutrophils # (Auto) 3.4 10 ^3/uL (1.6-8.6) Lymphocytes # (Auto) 2.3 10 ^3/uL (0.4-5.4) Monocytes # (Auto) 0.6 10 ^3/uL (0-1.3) Eosinophils # (Auto) 0.5 10 ^3/uL (0-0.8) Basophils # (Auto) 0 10 ^3/uL (0-0.2) Nucleated Red Blood Cells 0.0 % Prothrombin Time 10.5 sec (9.3-11.8) Prothrombin Time INR 0.99 (0.9-1.15) Activated Partial Thromboplast Time 28.8 SEC (24.5-34.5) Sodium Level 142 mmol/L (136-145) Potassium Level 3.9 mmol/L (3.5-5.1) Chloride Level 107 mmol/L (98-107) Carbon Dioxide Level 26 mmol/L (20-31) Anion Gap 9 (5-15) Blood Urea Nitrogen 15 mg/dL (9-23) Creatinine 0.78 mg/dL (0.550-1.02) Glomerular Filtration Rate Calc 84 mL/min (>90) BUN/Creatinine Ratio 19.2 (10.0-20.0) Serum Glucose 124 mg/dL (74-106) Calcium Level 9.8 mg/dL (8.7-10.4) Total Bilirubin 0.4 mg/dL (0.2-1.0) Aspartate Amino Transferase (AST) 18 U/L (13-40) Alanine Aminotransferase (ALT) 26 U/L (7-40) Alkaline Phosphatase 76 U/L (46-116) Total Protein 7.3 g/dL (5.7-8.2) Albumin 4.5 g/dL (3.2-4.8) POC Glucose 124 mg/dl (70-106) Influenza Type A Antigen Positive (Negative) Influenza Type B Antigen Positive (Negative) SARS-CoV-2 Antigen (Rapid) Negative (NEGATIVE) Troponin I High Sensitivity 3 ng/L (</=34) Thyroid Stimulating Hormone (TSH) 1.34 uIU/mL (0.55-4.78) Test 01/16/25 14:31 D-Dimer, Quantitative 0.45 mg/L FEU (0.0-0.49) Hemoglobin A1c 6.3 % A1C (<5.7) B-Type Natriuretic Peptide 9.30 pg/mL (0-100) Other Laboratory Tests 01/19/25 05:37 Brief Hx & Hospital Course: Patient is a 64-year-old female with past medical history of hypertension, dyslipidemia, hypothyroidism, type 2 diabetes, asthma, who came in due to neck and chest pain. According to the patient, for the past 2 weeks she has been experiencing a neck and chest pain which she describes as tight in nature, 6/10 in intensity. Patient notes that talking makes her pain worse, staying quiet relieves the pain. Patient also notes dysphagia to both solids and liquids, denies any regurgitation or foul smelling breath. Patient also notes feeling the sensation like food is stuck in her throat. On review of systems, patient is complaining of fatigue, cough, sore throat, hypersalivation, shortness of breath, dizziness and incontinence. Chest pain is reproducible with palpation, serial troponins are <3, <3, <3 and EKGs largely unremarkable. Hospital course: Initially patient was presented with chest pain, ruled out ACS, EKG and troponins were unremarkable. Patient was complaining of dysphagia to both solid and liquid, barium swallow demonstrated unremarkable esophagogram without structural abnormality of the esophagus. GI was consulted and patient underwent EGD today which showed small hiatal hernia, mild esophagitis, mild erosive gastritis, no stricture or mass lesion seen in the cervical esophagus or throat area to explain the dysphagia symptoms and recommended aggressive treatment with PPI and if dysphagia persists patient may need manometry studies and video esophagogram in referral center and also ENT consult. Influenza A and B was positive which was treated with Tamiflu 75 mg b.i.d. and resumed home medications for blood pressure control. Discharge plan was discussed with the patient and all questions were answered. Patient is being discharged to home with Protonix 40 mg b.i.d. for 1 month and Carafate 1 g b.i.d. for 1 month and advised to follow up with PCP in 1 week, outpatient GI to discuss biopsy in 4-6 weeks and outpatient ENT. Physical examination: General Appearance: Alert, Oriented X3, Cooperative, No acute distress HEENT: Atraumatic, PERRLA, EOMI, Mucous membrane moist/pink Respiratory: Clear to auscultation, Normal air movement Cardiovascular: Regular rate, Normal S1, Normal S2, No murmurs, no chest wall tenderness Abdominal: Normal bowel sounds, Soft, No tenderness, No hepatospenomegaly, No masses Extremities: No clubbing, No cyanosis, No edema, Normal pulses, No tenderness/swelling Skin: No rashes, No breakdown, No significant lesion Neuro: Normal gait, Normal speech, Strength at 5/5 X4 ext, Normal tone, Sensation intact, grossly intact cranial nerves. Psych/Mental Status: Mental status NL, Mood NL Consults/Reason for consult GI was consulted Operations or Procedures XY ESOPHAGUS BARIUM SWALLOW, HISTORY: dysphagia FINDINGS: The creative services director film demonstrates no abnormality. The esophagus was normal in caliber with no stricture, filling defect or wall irregularity demonstrated. Normal esophageal peristalsis was observed. No esophageal reflux was demonstrated during this exam. IMPRESSION: Unremarkable esophagram without structural abnormality of the esophagus. EXAM: US THYROID; DATE: HISTORY: HYPOTHYROIDISM FINDINGS: Right thyroid lobe measures 3.6 x 1.5 x 1.3 cm left thyroid lobe measures 2.6 x 1.4 x 0.9 cm. Isthmus is enlarged measuring 4 mm in thickness AP The thyroid has heterogeneous echotexture multiple tiny almost imperceptible calcifications. No nodules are appreciated. Vascular flow is normal . IMPRESSION: 1. Heterogeneous thyroid with thickened isthmus and no focal nodules EXAM: CT NECK WITH CONTRAST SOFT INDICATION: dysphagia Exam Date: 01/17/2025 03:25 AM COMPARISON: None TECHNIQUE: CT of the neck with intravenous contrast. FINDINGS: There is no evidence of cervical mass lesion, pathologically enlarged lymph nodes or fluid collection. The fat planes of the neck appear intact. The airway and larynx are unremarkable. The parotid, submandibular and thyroid glands are unremarkable. The vascular structures of the neck appear patent. The visualized lung apices are clear. The limited visualized portions of the brain are unremarkable. The osseous structures are unremarkable. IMPRESSION: No evidence of cervical mass lesion, pathologically enlarged lymph nodes or fluid collection. Operative Report DATE OF PROCEDURE: 01/19/25 INDICATIONS FOR THE PROCEDURE: Dysphagia PROCEDURE PERFORMED: 1. Esophagogastroduodenoscopy and biopsy with cold biopsy forceps POSTOPERATIVE DIAGNOSIS: Small hiatal hernia Mild esophagitis LA classification B biopsies taken by cold biopsy forceps Mild erosive gastritis of the antrum biopsies taken by cold biopsy forceps INFORMED CONSENT: The risks and benefits and alternatives were explained to the patient and informed consent was obtained. PROCEDURE IN DETAIL: The patient was kept NPO after midnight. In the endoscopy room, she was given IV fentanyl 75 mcg and Versed, 3 mg and Benadryl 25 mg titrated slowly to get her sedated. Olympus gastroscope was passed through the oropharynx into the stomach and the duodenum, and the findings were as follows. Esophagus: Vocal cords with a normal Esophagus the proximal esophagus not show any strictures mass lesions or any extrinsic pressure effect grossly and the scope could be passed through easily 1 cm Hiatal hernia Esophagitis mild LA classification B in the distal esophagus biopsies taken with the cold biopsy forceps No Esophageal ulcer No Esophageal stricture Stomach: Fundus: Retroflexed and visualized normal Body and antrum in the antrum there were erythematous streaks with erosions suggestive of gastritis in the distal antrum biopsies taken with cold biopsy forceps for H pylori and other pathology Pylorus normal Duodenum Unremarkable Endoscopic impression Small hiatal hernia Mild esophagitis LA classification B Mild erosive gastritis No strictures or mass lesions seen in the cervical esophagus or throat area to explain the dysphagia symptoms Suggestions Await the biopsy Aggressive treatment with PPIs If dysphagia persist may need manometric studies and a good video esophagogram studies in referral center Also ENT consult Condition at Discharge: Guarded Final Diagnosis/Problems List # Chest pain; ruled out ACS. LASHAUN 2 # Influenza A and B positive # Dysphagia likely due to mild esophagitis, s/p EGD # Hypertensive heart disease with possible chronic diastolic heart failure # Type 2 diabetes, Hb A1c 6.3 # Chronic hypothyroidism # Chronic depression/ anxiety Discharge Disposition: Home Discharge Instruct/Medications Follow Up/Referral: Follow up with PCP in 1 week, outpatient GI to discuss biopsy in 4-6 weeks and outpatient ENT. Discharge Statement: "Patient was advised to return to the ER or call 911 if any headaches, dizziness, shortness of breath, chest pain, abdominal pain, bleeding, fevers, or worsening of medical condition. Patient was counseled about treatment plan, medications, possible side effects, patientverbalized understanding. All questions were answered to the best of my ability. This discharge took greater then 30 minutes in planning, reviewing documentation, counseling the patient, and discussing with other team members." ASSESSMENT ASSESSMENT Assessment Date of Service: Jan 19, 2025 Billing Provider: KEREN WANG MD Common Visit Codes: 48178-YJR/OBS DISCH DAY >30min JENNIFER STROUD RESIDENT Jan 19, 2025 11:58 KEREN WANG MD Jan 19, 2025 19:28
[2025-01-19] MEDS ORDERED: PANT40TA2 PO ×2 (12:30)
[2025-01-19] MEDS ORDERED: ATOR40TA52 PO (12:30)
[2025-01-19] MEDS ORDERED: SUCR1SUS5 PO (12:30)
[2025-01-19] MEDS ORDERED: TAMIFLU PO (12:30)
[2025-01-19 14:25] VITALS: BP 157/76; PULSE 71; RESP 20; TEMP 98.3; O2SAT 95
[2025-01-19 14:44] VITALS: BP 157/76; PULSE 71; RESP 20; TEMP 98.3; O2SAT 95
[2025-01-19 17:00] VITALS: BP 145/91; PULSE 61; RESP 18; TEMP 98.2; O2SAT 96
--- NOTE | 2025-01-21 21:44 | DVHSR ---
APPROVED REPORT EXAM: Two-dimensional and M-mode echocardiogram with Doppler and color Doppler. Blood Pressure: 123/70 mmHg INDICATION Chest Pain RISK FACTORS Obesity: Height: 5'4, Weight: 190 DIMENSIONS LVDd4.1 (3.8-5.7cm)LA (2D)3.8 (1.9-4.0cm)Aortic Root2.8 (2.0-3.7cm) LVDs3.0 (2.5-4.0cm)LA (MM) (1.9-4.0cm)Aortic Cusp Exc1.7 (1.5-2.0cm) EF (%) 50.0 (55-70%)Rt. Atrium3.5 (1.9-4.0cm)Asc. Aorta3.4 cm IVSd0.9 (0.7-1.1cm)RV (D)3.1 (1.8-2.4cm) PWd0.8 (0.7-1.1cm) Mitral Valve MitralMitral Stenosis E wave0.71m/sMV Mean GR.mmHg A wave0.94m/sMV Peak GR.mmHg E/A ratio0.82D MVAcm2 DECEL [id number] 1/2 Timems Aortic Valve Aortic ValveAortic Stenosis V11.28m/Andry Mean GR.6mmHg V21.52m/Andry Peak GR.9mmHg LVOT Diameter2.0 (1.8-2.4cm)Doppler AVA2.64cm2 AI P 1/2 [id number] Pulmonic Valve V20.94m/s Tricuspid Valve TR Velocity2.29m/s [id number] Conclusion LV EF IS 60% GROSSLY NORMAL VALVES CAN NOT EXCLUDE BICUSPID AORTIC VALVE MODERATE DEGREE AORTIC REGURGITATION NORMAL RV FUNCTION AND SIZE NO EFFUSION SUGGESTION REPEAT LIMITED ECHO FOR AORTIC VALVE EVALUATION TO R/O BICUSPID AORTIC VALVE
== END 2025-01-19 17:45 | disposition home or self-care (01) | DRG 392 ==
LOC: ER 14:16 → OVERFLOW 22:04 → EAST 01-18 09:05
PROVIDERS: ADMIT Internal Medicine; ATTEND Internal Medicine
PROC: 0DB78ZX Excision of Stomach, Pylorus, Via Natural or Artificial Opening Endoscopic, Diagnostic (ICD-10-PCS; 2025-01-19)
PROC: 0DB38ZX Excision of Lower Esophagus, Via Natural or Artificial Opening Endoscopic, Diagnostic (ICD-10-PCS; principal; 2025-01-19 11:10)
DX: K20.90 Esophagitis, unspecified without bleeding (principal); I50.32 Chronic diastolic (congestive) heart failure; K29.60 Other gastritis without bleeding; K44.9 Diaphragmatic hernia without obstruction or gangrene; J10.1 Influenza due to other identified influenza virus with other respiratory manifestations; Z20.822 Contact with and (suspected) exposure to COVID-19; I11.0 Hypertensive heart disease with heart failure; R13.10 Dysphagia, unspecified; E78.5 Hyperlipidemia, unspecified; E11.9 Type 2 diabetes mellitus without complications; E03.9 Hypothyroidism, unspecified; E87.6 Hypokalemia; I51.3 Intracardiac thrombosis, not elsewhere classified; J45.909 Unspecified asthma, uncomplicated; F41.9 Anxiety disorder, unspecified; F32.A Depression, unspecified; Z79.1 Long term (current) use of non-steroidal anti-inflammatories (NSAID); Z79.2 Long term (current) use of antibiotics; Z79.84 Long term (current) use of oral hypoglycemic drugs; Z82.49 Family history of ischemic heart disease and other diseases of the circulatory system; Z80.0 Family history of malignant neoplasm of digestive organs; Z83.3 Family history of diabetes mellitus
CPT/HCPCS: 36415; 43239; 70360; 70491; 71046; 74220; 76536; 80048; 80053; 82962; 83036; 83880; 84443; 84484; 85025; 85379; 85610; 85730; 86850; 86900; 86901; 87426; 87804; 92610; 93005; 93306; G0378; J2250; J2470